=== PATIENT | female | born 1980 | race Caucasian/White ===

== ENCOUNTER → 2019-01-02 | Outpatient (CLI) | payer OTHER | LOC: FIMAGING 09:30 | PROVIDERS: ATTEND Obstetrics & Gynecology | DX: O09.522 Supervision of elderly multigravida, second trimester (principal); O99.412 Diseases of the circulatory system complicating pregnancy, second trimester; Z3A.19 19 weeks gestation of pregnancy ==

== ENCOUNTER → 2019-02-06 | Outpatient (CLI) | payer OTHER | LOC: FIMAGING 09:11 ==